=== PATIENT | male | born 1960 | race Caucasian/White ===

== ENCOUNTER 2023-07-20 10:58 | Emergency (ER) | payer OTHER ==
[2023-07-20] MEDS ORDERED: Orphenadrine Citrate 60 MG/2 ML VIAL ONE (11:22)
[2023-07-20] MEDS ORDERED: HYDROcodone/Acetaminophen 10/325 mg Tablet ONE (11:23)
== END 2023-07-20 12:10 | disposition home or self-care (01) ==
LOC: MADERS 10:58
DX: S29.011A Strain of muscle and tendon of front wall of thorax, initial encounter (principal); M79.10 Myalgia, unspecified site; E11.9 Type 2 diabetes mellitus without complications; E78.5 Hyperlipidemia, unspecified; I10 Essential (primary) hypertension; Z87.891 Personal history of nicotine dependence; Z79.01 Long term (current) use of anticoagulants; Z79.84 Long term (current) use of oral hypoglycemic drugs; Z79.82 Long term (current) use of aspirin; Z79.899 Other long term (current) drug therapy; V89.2XXA Person injured in unspecified motor-vehicle accident, traffic, initial encounter
CPT/HCPCS: 74022; 96372; J2360